=== PATIENT | male | born 1970 | race Caucasian/White ===

== ENCOUNTER 2017-01-30 09:18 | Emergency (ER) | payer SELFPAY ==
[~2017-01-30] VITALS: Ht 180.3 cm; Wt 91.3 kg
[2017-01-30 13:02] LABS: BASOPHIL COUNT 0.1 K/uL (0-0.1); EOSINOPHIL (%) 2.5 % (0-5); EOSINOPHIL COUNT 0.3 K/uL (0-0.3); HEMATOCRIT 55.3 % (38.0-50.0); IMMATURE GRANULOCYTE (%) 1.6 % (0.0-0.7); IMMATURE GRANULOCYTE COUNT 0.2 K/uL; INSTRUMENT ABS NEUTROPHIL CT 6.9 K/uL; LYMPHOCYTE COUNT 3.4 K/uL (1.0-2.8); MCH 29.8 PG (29.0-34.0); MCHC 34.5 G/DL (30.0-36.0); MCV 86.1 FL (86-99); MEAN PLAT.VOLUME 10.8 uM^3 (9.0-12.4); MONOCYTE (%) 8.1 % (3-12); NEUTROPHIL (%) 58.2 % (45-76); NEUTROPHIL COUNT 6.9 K/uL (1.8-6.4); PLATELET COUNT 253 K/uL (156-360); RBC DIS.WIDTH-CV 16.4 % (11.8-14.6); RBC DIS.WIDTH-SD 47.5 % (39-53); RED BLOOD COUNT 6.42 M/uL (4.00-5.50); WHITE BLOOD COUNT 11.8 K/uL (4.1-10.2)
[2017-01-30 13:15] LABS: CHLORIDE 107 mEq/L (99-109); POTASSIUM 4.6 mEq/L (3.7-5.4); SODIUM 138 mEq/L (136-147)
[2017-01-30 13:17] LABS: GLUCOSE 106 mg/dL (70-99)
[2017-01-30 13:18] LABS: ANION GAP 10 MEQ/L (2-14)
[2017-01-30 13:21] LABS: GFR ESTIMATE (CALCULATED) > 59 mL/min/
[2017-01-30 13:22] LABS: UREA NITROGEN (BUN) 12 mg/dL (9-23)
[2017-01-30 14:01] VITALS: BP 122/89
== END 2017-01-30 14:02 | disposition home or self-care (01) ==
LOC: EME 09:18
PROVIDERS: Physician Assistant
DX: E86.0 Dehydration (principal); R25.2 Cramp and spasm; M79.661 Pain in right lower leg; F17.200 Nicotine dependence, unspecified, uncomplicated
CPT/HCPCS: 80048; 85025; 93971; 99281; 99285; J1885

== ENCOUNTER 2017-10-29 07:46 | Emergency (ER) | payer OTHER ==
[~2017-10-29] VITALS: Ht 180.3 cm; Wt 97.9 kg
[2017-10-29 08:54] LABS: HEMATOCRIT 49.9 % (38.0-50.0); HEMOGLOBIN 18.2 G/DL (12.5-16.6); MCH 31.7 PG (29.0-34.0); MCHC 36.5 G/DL (30.0-36.0); MCV 86.9 FL (86-99); RBC DIS.WIDTH-CV 14.7 % (11.8-14.6); RBC DIS.WIDTH-SD 46.3 % (39-53); RED BLOOD COUNT 5.74 M/uL (4.00-5.50); WHITE BLOOD COUNT 14.5 K/uL (4.1-10.2)
[2017-10-29 09:04] LABS: ALBUMIN 4.2 g/dL (3.2-4.8); CHLORIDE 107 mEq/L (99-109); POTASSIUM 4.1 mEq/L (3.7-5.4); SODIUM 140 mEq/L (136-147)
[2017-10-29 09:06] LABS: GLUCOSE 116 mg/dL (70-99)
[2017-10-29 09:07] LABS: TOTAL PROTEIN 7.7 g/dL (6.4-8.3)
[2017-10-29 09:08] LABS: TOTAL BILIRUBIN 1.8 mg/dL (0.0-1.0)
[2017-10-29 09:10] LABS: ALKALINE PHOSPHATASE 119 IU/L (3-129); CREATININE 0.8 mg/dL (0.6-1.3); GFR ESTIMATE (CALCULATED) > 59 mL/min/ (58.99-99999)
[2017-10-29 09:11] LABS: UREA NITROGEN (BUN) 11 mg/dL (9-23)
[2017-10-29 09:12] LABS: AST (GOT) 18 IU/L (2-34)
[2017-10-29 09:13] LABS: ALT (GPT) 22 IU/L (3-49); LIPASE 5 U/L (1.0-51.0)
[2017-10-29 09:34] LABS: PLAT.SUFFICIENCY ADEQUATE; PLATELET COUNT 233 K/uL (156-360)
[2017-10-29] MEDS ORDERED: ZITHROMAX250 MG PO (12:09)
[2017-10-29] MEDS ORDERED: PERCOCET 5/31 TABLET PO (12:09)
[2017-10-29] MEDS ORDERED: ZOFRAN ODT4 MG PO (12:09)
[2017-10-29 12:29] VITALS: BP 115/84
== END 2017-10-29 12:33 | disposition home or self-care (01) ==
LOC: EME 07:46
PROVIDERS: Nurse Practitioner Family
DX: K80.20 Calculus of gallbladder without cholecystitis without obstruction (principal); J18.9 Pneumonia, unspecified organism; K43.9 Ventral hernia without obstruction or gangrene; F17.200 Nicotine dependence, unspecified, uncomplicated
CPT/HCPCS: 71046; 74177; 80053; 83690; 85027; 85379; 99281; 99285; J1885; J2405; J3010; J7030